=== PATIENT | male | born 1975 | race Caucasian/White ===

== ENCOUNTER 2021-12-15 18:39 | Emergency (ER) | payer OTHER, SELFPAY ==
[2021-12-15 18:40] VITALS: BP 134/87; PULSE 86; RESP 16; TEMP 37.1; O2SAT 97; BMI 34.9
--- NOTE | 2021-12-15 19:50 | RAD_ITS ---
EXAM: XR RIGHT KNEE, 3 VIEWS CLINICAL INDICATION: INJUSY/SWELLING TECHNIQUE: Three views of the right knee. This report was created using [employer] report generation technology. COMPARISON: None. FINDINGS: BONES/JOINTS: Moderate joint effusion. No acute fracture. No subluxation. Normal alignment. No sclerotic or destructive changes observed. SOFT TISSUES: Unremarkable. No soft tissue swelling or gas. No radiopaque foreign body. RAD/Knee 3 Views IMPRESSION: Moderate joint effusion. Electronically Signed: Alessandro Orellana MD at 20:32 EDT ,
--- NOTE | 2021-12-15 20:35 | EDS_ITS ---
HPI History of Present Illness Chief Complaint: Lower Extremity Injury Informant: patient Narrative Narrative: 46-year-old [facility] male presenting to the emergency department with knee pain. Patient states about a week ago he injured his right knee. He states that the gearshift from his mower went into the area just above his knee. He states that he slowly developed swelling and now bruising. He notes pain with flexion and extension. He reports that it feels better if he keeps it straight but the brace he is using is too small. He is not on any blood thinners. No fevers. [facility] Medical History (Updated 12/15/21 @ 20:[address] Haja Lopez DO) Hypertension Home Medications escitalopram oxalate 10 mg PO DAILY 12/15/21 [History Last Taken Unknown] lisinopril 20 mg PO BID 12/15/21 [History Last Taken Unknown] metoprolol succinate 25 mg PO DAILY 12/15/21 [History Last Taken Unknown] Allergy/AdvReac Type Severity Reaction Status Date / Time No Known Allergies Allergy Verified 12/15/21 18:39 Social History Smoking Status: Never smoker alcohol intake: never ROS ROS ED Constitutional Constitutional ED: Denies chills, fever(s) or weight loss Eyes Eyes: Denies change in vision or diplopia ENT ENT ED: Denies ear pain, rhinorrhea or sore throat Cardiovascular Cardiovascular: Denies chest pain, orthopnea, palpitations or racing heartbeat Respiratory/Chest Respiratory/Chest: Denies cough, dyspnea or orthopnea Gastrointestinal Gastrointestinal: Denies abdominal pain, diarrhea, nausea or vomiting Genitourinary Genitourinary ED: Denies dysuria, hematuria or urinary frequency Musculoskeletal Musculoskeletal: Reports other Details: See history of present illness ; Denies arthralgias or myalgias Integumentary Denies abscess or rash Neurologic Neurologic: Denies headache(s) or weakness Psychiatric Psychiatric: Denies anxiety, depression, suicidal ideation or suicidal thoughts Endocrine Endocrinology: Denies polydipsia, polyphagia or polyuria Allergic/Immunologic Allergic/Immunologic ED: Denies mouth swelling, tongue swelling or urticaria EXAM Physical Exam Const Vital Signs: 12/15/21 18:40 Temperature 98.8 F Temperature Source Temporal Pulse Rate 86 Respiratory Rate 16 Blood Pressure 134/87 H Blood Pressure Mean 102 Pulse Ox 97 Oxygen Delivery Method Room Air Positive well nourished and well developed General Appearance ED: well developed HEENT Reports normocephalic, head/scalp atraumatic, TM's clear and moist mucous membranes Negative for trauma Tympanic Membrane ED: Yes TM's clear Eyes PERRL and EOMs intact bilaterally Neck no lymphadenopathy, supple and no JVD Resp normal respiratory effort and clear to auscultation bilaterally Cardio regular rate, regular rhythm and no murmurs GI normal to inspection, nondistended, normoactive bowel sounds and non-tender Palpation: soft Back/Spine no CVA tenderness and normal ROM Extremity Extremity Narrative: There is bruising and swelling in the suprapatellar bursal region. I do not appreciate joint effusion. Ligaments appear intact. No joint line tenderness. No posterior swelling. Painful range of motion is noted General Extremety ED: Negative for edema General Extremity: Negative for edema Neuro oriented x3 and CN's II-XII intact bilaterally Sensorium / Orientation: alert Motor Exam: strength 5/5 throughout Psych mental status grossly normal Mood & Affect: Negative for depressed or tearful Skin no rashes or lesions noted and no wounds MDM MDM MDM Narrative Medical decision making narrative: My interpretation of the plain films of the knee is no acute fracture. Effusion is noted. Clinically this appears more as a traumatic bursitis. Going to immobilize the knee have him rest but do try to use the knee with flexion extension as tolerated. If he is not improving he should follow-up with orthopedics Radiography Diagnostic Testing: Clinical Impression(s) from Imaging Studies Knee X-Ray 12/15/21 19:50 IMPRESSION: Moderate joint effusion. Electronically Signed: Alessandro Orellana MD at 20:32 EDT , Discharge Plan Triage Chief Complaint: Lower Extremity Injury ED Provider: Haja Lopez Dx/Rx/DC Orders Clinical Impression: Traumatic bursitis Instructions: ED Bursitis Prescriptions: No Action lisinopril 20 mg tablet 20 mg PO BID RF: 0 metoprolol succinate 25 mg tablet extended release 24 hr 25 mg PO DAILY RF: 0 escitalopram oxalate 10 mg tablet 10 mg PO DAILY RF: 0 Primary Care Provider: Magda Marks Referrals: Magda Marks DO [Primary Care Provider] - Rohan Rodriguez MD [STAFF PHYSICIAN] - 10-14 Days if not better (for orthopedic evaluation) Disposition Disposition: Home, Self Care
== END 2021-12-15 21:20 | disposition home or self-care (01) ==
PROVIDERS: Emergency Provider Emergency Medicine; PCP Internal Medicine; Visit Provider Emergency Medicine
DX: M71.561 Other bursitis, not elsewhere classified, right knee (principal); I10 Essential (primary) hypertension; Z79.899 Other long term (current) drug therapy
CPT/HCPCS: 73562; 99283

== ENCOUNTER → 2022-05-22 | Outpatient (CLI) | payer SELFPAY, OTHER ==
--- NOTE | 2022-05-22 12:28 | CT_ITS ---
STUDY: CARDIAC CALCIUM SCORING - CT CHEST REASON FOR EXAM: Male, 47 years old. GRIEVING.. FAMILY HISTORY OF HEART DISEASE. RADIATION DOSAGE (If Supplied By Facility): CTDIvol = ( 12.19 ) mGy, DLP = ( 195.04 ) mGycm TECHNIQUE: Axial non-enhanced images were acquired through the heart for the sole purpose of measuring coronary artery calcium. Individualized dose optimization techniques were used for this CT. COMPARISON: Chest, 12/20/2013. FINDINGS: This portion of the report is being generated solely for the evaluation of noncoronary artery structures which have been assessed on plain another report. The visualized lungs are clear. No pleural abnormality. The heart is normal in size. No coronary artery calcifications. Normal thoracic aorta and pulmonary arteries. No mediastinal or hilar lymphadenopathy. Chest wall structures are grossly unremarkable. Minimal degenerative changes of the thoracic spine. The upper abdomen is grossly normal. CT/Limited Chest CT Cardiac Only IMPRESSION: No evidence of anatomic abnormality. Electronically Signed: Nader Kidd DO at 16:03 EDT ,
[2022-05-22 12:38] VITALS: BP 128/82; PULSE 72; RESP 18; TEMP 36.9; O2SAT 97; BMI 33.0
--- NOTE | 2022-05-24 16:45 | CA.SCORE ---
Calcium Scoring Date of Study:: 05/22/22 Coronary Calcium Scoring: High-resolution Computed Tomographic imaging of the chest was performed on [05/22/22 ], with particular attention paid to the coronary arteries. Images from the examination were analyzed for the presence and extent of coronary artery calcification , using coronary calcium quantification software. The patient tolerated the procedure well and there were no complications. The results of the coronary calcification analysis are provided below. Findings Coronary Artery Left Main (LM): 0 Left Anterior Descending (LAD): 0 Left Circumflex (LCX): 0 Right Coronary Artery (RCA): 0 Total Agatston Score: 0 Percentile Rankin Calcium Scoring Interpretation: 0 No identifiable atherosclerotic plaque. Very low cardiovascular disease risk. <5% chance of presence coronary artery disease A Negative Examination 1-10 Minimal Plaque burden. Significant coronary artery disease very unlikely. 11-100 Mild plaque burden. Likely mild or minimal coronary atherosclerosis. 101-400 Moderate plaque burden Moderate non-obstructive coronary artery disease highly likely. Over 400 Extensive plaque burden. High likelihood of at least one significant coronary stenosis (>50% diameter) Calcium Score: 0 Negative Examination
== END | disposition home or self-care (01) ==
PROVIDERS: PCP Internal Medicine; Referring Provider Internal Medicine; Visit Provider Internal Medicine
DX: F43.21 Adjustment disorder with depressed mood (principal)
CPT/HCPCS: 75571; 76380

== ENCOUNTER 2022-09-17 16:25 | Emergency (ER) | payer OTHER, SELFPAY ==
[2022-09-17 16:26] VITALS: BP 144/97; PULSE 70; RESP 14; TEMP 36.2; O2SAT 93; BMI 34.3
--- NOTE | 2022-09-17 18:26 | EDS_ITS ---
HPI History of Present Illness Chief Complaint: Lower Extremity Injury Narrative Narrative: Patient presents with left lateral leg pain after a log fell on his leg 2 weeks ago. The pain is improving he still has some swelling. He was worried about blood clot since he saw a chiropractor today who told him this may be a blood clot. [facility] Medical History Hypertension Sebaceous cyst Home Medications escitalopram oxalate 10 mg tablet 10 mg PO DAILY 12/15/21 [History Last Taken Unknown] lisinopril 20 mg tablet 20 mg PO BID 12/15/21 [History Last Taken Unknown] metoprolol succinate 25 mg tablet,extended release 24 hr 25 mg PO DAILY 12/15/21 [History Last Taken Unknown] atorvastatin 10 mg tablet (Lipitor) 10 mg PO DAILY 05/04/22 [History Last Taken Unknown] hydrochlorothiazide 25 mg tablet 25 mg PO DAILY 05/04/22 [History Last Taken Unknown] Allergy/AdvReac Type Severity Reaction Status Date / Time No Known Allergies Allergy Verified 09/17/22 16:26 Family History Brother Heart disease Myocardial infarction Father Heart disease Grandfather Heart disease Grandmother Heart disease Mother Heart disease Diabetes Sister Heart disease Thyroid disorder Surgical History History of cardiac cath Pilar cyst of scalp Social History Smoking Status: Never smoker alcohol intake: never substance use type: does not use ROS ROS ED ROS Narrative Past medical history: Hypertension Medications: Reviewed Social history: Noncontributory Review of systems: Musculoskeletal: Left leg pain as in HPI Skin: No abrasions or lacerations Neurological: No weakness or paresthesias Hematologic: No easy bleeding or easy bruising EXAM Physical Exam Narrative Exam Narrative: Physical exam General: Patient does not appear in significant distress . Head: Normocephalic, Atraumatic Neck: No C-spine tenderness Cardiovascular: Normal distal pulses Back: Nontender, Normal Inspection. Extremities: Left lower extremity shows tenderness lateral to the tibia, there is slight swelling in that region but the compartment is soft. There is no calf pain. Negative Homans. Skin: No abrasions, no lacerations Neurological: Normal strength and sensation Const Vital Signs: 09/17/22 16:26 Temperature 97.2 F L Temperature Source Temporal Pulse Rate 70 Respiratory Rate 14 Blood Pressure 144/97 H Blood Pressure Mean 112 Pulse Ox 93 Oxygen Delivery Method Room Air MDM MDM MDM Narrative Medical decision making narrative: Patient does not have bony tenderness therefore I do not believe he needs a tib- fib x-ray although I thought about it. I also thought about a possible DVT study, however the patient does not have any calf pain his pain is localized at the site of trauma and it is lateral, I told him the ultrasound would not even look in that area for DVTs. Patient is reassured. He will take [id number] analgesics otherwise he will be discharged in stable condition. Discharge Plan Triage Chief Complaint: Lower Extremity Injury ED Provider: Fernando Park Dx/Rx/DC Orders Clinical Impression: Contusion of left leg, Left leg pain Instructions: Bruises (Contusions) Prescriptions: No Action hydrochlorothiazide 25 mg tablet 25 mg PO DAILY atorvastatin [Lipitor] 10 mg tablet 10 mg PO DAILY lisinopril 20 mg tablet 20 mg PO BID metoprolol succinate 25 mg tablet extended release 24 hr 25 mg PO DAILY escitalopram oxalate 10 mg tablet 10 mg PO DAILY Primary Care Provider: Magda Marks Referrals: Magda Marks DO [Primary Care Provider] - 3-5 Days Disposition Disposition: Home, Self Care
[2022-09-17 18:29] VITALS: PULSE 79; RESP 17; O2SAT 99
== END 2022-09-17 18:38 | disposition home or self-care (01) ==
PROVIDERS: Emergency Provider Emergency Medicine; PCP Internal Medicine; Visit Provider Emergency Medicine
DX: S80.12XA Contusion of left lower leg, initial encounter (principal); X58.XXXA Exposure to other specified factors, initial encounter
CPT/HCPCS: 99282

== ENCOUNTER 2023-12-12 14:51 | Emergency (ER) | payer OTHER, SELFPAY ==
[2023-12-12] VITALS (8 sets, daily range): BP systolic 126–150; BP diastolic 88–114; PULSE 89–100; RESP 18–23; TEMP 36.2–36.8; O2SAT 94–100; BMI 34.8
--- NOTE | 2023-12-12 14:54 | RAD_ITS ---
EXAM: XR CHEST, 1 VIEW CLINICAL INDICATION: right rib pain TECHNIQUE: Frontal view of the chest. COMPARISON: No relevant prior studies available. FINDINGS: LUNGS AND PLEURAL SPACES: No significant abnormality. No consolidation or edema. No pneumothorax. No effusion. HEART: No significant abnormality. Cardiac silhouette not enlarged. MEDIASTINUM: Central airways and mediastinal contour are unremarkable. BONES/JOINTS: No significant abnormality. No acute fracture. SOFT TISSUES: No significant abnormality. RAD/Chest 1 View (Portable) IMPRESSION: No radiographic evidence of acute cardiopulmonary disease. No distinct rib fracture. Electronically Signed: Teodoro Ruiz DO at 15:22 EDT ,
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
--- NOTE | 2023-12-12 14:56 | RAD_ITS ---
EXAM: XR RIGHT SHOULDER COMPLETE, 2 OR MORE VIEWS CLINICAL INDICATION: pain TECHNIQUE: Two or more views of the right shoulder. COMPARISON: No relevant prior studies available. FINDINGS: BONES/JOINTS: No significant abnormality. No acute fracture. No subluxation. Normal alignment. Preservation of the joint space. No sclerotic or destructive changes observed. SOFT TISSUES: No significant abnormality. No soft tissue swelling or gas. No radiopaque foreign body. RAD/Shoulder min 2 Views IMPRESSION: Negative right shoulder x-rays. Electronically Signed: Teodoro Ruiz DO at 15:22 EDT ,
[2023-12-12] MEDS: fentaNYL 100 MCG/2 ML Ampul 50 MCG IV (15:02)
[2023-12-12 15:18] LABS: Absolute Lymphocyte Count 1.49 X10^3/uL (0.83-4.51); Absolute Neutrophil Count 4.9 X10^3/uL (2.0-7.7); Basophil# 0.04 X10^3/uL; Basophil% 0.6 % (0-1); Eosinophil# 0.05 X10^3/uL; Eosinophils% 0.7 % (0-5); Hematocrit 42.6 % (40-54); Hemoglobin 14.2 g/dL (13.0-16.5); Lymphocyte # 1.49 X10^3/ul (0.83-4.51); Lymphocyte % 20.8 % (19-41); Mean Corp Hgb Conc 33.3 g/dL (32-36); Mean Corpuscular Hgb 28.2 pg (27.0-32.0); Mean Corpuscular Volume 84.5 fL (80-94); Mean Platelet Vol. 8.7 fl (6.2-12.0); Monocyte# 0.59 X10^3/uL; Monocyte% 8.2 % (0-10); NRBC Flagged by Analyzer 0 % (0-5); Neutrophil # 4.93 X10^3/uL (2.7-7.7); Neutrophil % 68.9 % (47-70); Platelet Count 305 K/mm3 (150-450); RBC Distribution Width CV 12.9 % (11.6-14.6); RBC Distribution Width SD 39.5 fl (35.1-43.9); Red Blood Count 5.04 M/mm3 (4.6-6.2); White Blood Count 7.2 K/mm3 (4.4-11.0)
[2023-12-12 15:39] LABS: Anion Gap 11 (5-15); BUN 26 mg/dL (7-18); BUN/Creat Ratio 23.2 RATIO (10-20); Calcium,Total 9.7 mg/dL (8.5-10.1); Chloride 104 mmol/L (98-107); Creatinine, Serum 1.12 mg/dL (0.70-1.30); EST Glomerular Filtration Rate 74 mL/min (>60); Est Glom Filt Rate - Afr Amer 90 mL/min (>60); Estimated Creatinine Clearance 100.26 ml/min; Glucose 129 mg/dL (74-106); Potassium 3.7 mmol/L (3.5-5.1); Sodium Level 139 mmol/L (136-145)
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
[2023-12-12] MEDS: oxyCODONE 5 MG Tablet PO (17:24)
[2023-12-12] MEDS: Ondansetron 4 MG/2 ML Vial IV (20:16)
[2023-12-12] MEDS: Ketorolac 15 MG/ML Vial IV (20:16)
[2023-12-12] MEDS: Morphine 4 MG/ML Syringe IV (20:17)
== END 2023-12-12 21:42 | disposition short-term general hospital (02) ==
LOC: ED 15:12
PROVIDERS: Emergency Provider Emergency Medicine; PCP Internal Medicine; Visit Provider Emergency Medicine
DX: S09.90XA Unspecified injury of head, initial encounter (principal); S20.229A Contusion of unspecified back wall of thorax, initial encounter; S22.41XA Multiple fractures of ribs, right side, initial encounter for closed fracture; I10 Essential (primary) hypertension; S22.32XA Fracture of one rib, left side, initial encounter for closed fracture; V80.02XA Occupant of animal-drawn vehicle injured by fall from or being thrown from animal-drawn vehicle in noncollision accident, initial encounter
CPT/HCPCS: 70450; 71045; 71260; 72125; 72128; 72131; 73030; 74177; 80048; 85025; 96374; 96375; 99283; Q9967; A4216; J2405